=== PATIENT | male | born 1960 | race Asian ===

== ENCOUNTER 2021-12-10 13:55 | Emergency (ER) | payer OTHER, SELFPAY ==
[~2021-12-10] VITALS: Ht 172.7 cm; Wt 99.8 kg
[2021-12-10 13:59] VITALS: BP_SYST 152
--- NOTE | 2021-12-10 14:03 | NUR ---
SENT TO [facility]
--- NOTE | 2021-12-10 17:22 | NUR ---
EXAMINED BY DR. BENSON
[2021-12-10 18:17] VITALS: BP_SYST 138
--- NOTE | 2021-12-10 18:17 | NUR ---
Patient given written and verbal discharge instructions and verbalizes understanding. ER MD discussed with patient the results and treatment provided. Patient in stable condition. ID arm band removed. Rx of NOEE given. Patient educated on pain management and to follow up with PMD. Pain Scale 0/10 Opportunity for questions provided and answered. Medication side effect fact sheet provided.
== END 2021-12-10 19:34 | disposition home or self-care (01) ==
LOC: SED 13:55
DX: I95.9 Hypotension, unspecified (principal); Z53.21 Procedure and treatment not carried out due to patient leaving prior to being seen by health care provider
CPT/HCPCS: 99281